=== PATIENT | male | born 1995 | race Caucasian/White ===

== ENCOUNTER 2018-02-12 09:01 | Emergency (ER) | payer OTHER ==
--- NOTE | 2018-02-12 09:45 | EDPHY ---
H & P Time Seen by Provider: 02/12/18 09:23 HPI/ROS: Last night this patient developed fevers and chills. He had mild nasal congestion associated with this. He took Tylenol at 3:00 a.m. With resolution of his fever and chills and was able to sleep thereafter. He awakened this morning without fever but had 1 loose stool described as light brown small watery. He had slight belly cramping prior to the diarrhea but none since. The patient visited his parents today for Easter and his mother was concerned about his symptoms citing primarily worry of potential influenza him brought him in for evaluation. He is accompanied by his father. At this time the patient feels well. ROS: Constitutional: No fatigue. HEENT: No sinus pain. No sore throat. No ear pain. Neuro: No generalized headache confusion or neck stiffness. Pulmonary: No cough Cardiovascular: No lightheadedness. No chest pain. GI: As per HPI. No bloody stools, green mucoid stools or tarry stools. Some nausea but no vomiting. Admits a decreased appetite since the onset of the symptoms. : No dysuria, frequency, urgency, testicular swelling or pain. No urethral discharge. 10 point ROS is otherwise negative. Past Medical/Surgical History: No influenza immunization this year. 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 Smoking Status: Never smoked Physical Exam: Vital signs are normal General Appearance: Alert, no distress. Eyes: Pupils equal and round no pallor or injection. ENT, Mouth: Mucous membranes moist. Respiratory: There are no retractions, lungs are clear to auscultation. Cardiovascular: Regular rate and rhythm. Gastrointestinal: Abdomen is soft and nontender, no masses, bowel sounds normal. Back: No CVA tenderness. : No testicular tenderness Neurological: GCS 15. Skin: Warm and dry, no rashes. Musculoskeletal: Neck is supple nontender. Extremities are symmetrical, full range of motion. Psychiatric: Mood and affect are normal DIFFERENTIAL DIAGNOSIS: After history and physical exam differential diagnosis was considered for influenza, viral URI, viral gastroenteritis Constitutional: Initial Vital Signs Temperature (C) 36.6 C 02/12/18 09:18 Heart Rate 97 02/12/18 09:18 Respiratory Rate 16 02/12/18 09:18 Blood Pressure 137/77 H 04/01/18 09:18 O2 Sat (%) 95 02/12/18 09:18 O2 Delivery Mode Room Air Allergies/Adverse Reactions: No Known Allergies Allergy (Verified 02/12/18 09:18) Home Medications: Medication Instructions Recorded Ondansetron Odt [Zofran Odt] 4 - 8 mg PO Q4PRN PRN #4 tab 02/12/18 MDM/Departure - [facility] ED Course/Re-evaluation: Discussion: Patient is currently asymptomatic with history of a fever last night loose stool this morning nasal congestion with a negative rapid influenza here. Viral gastroenteritis prevalent our community at this time I think he likely has this illness. I counseled he and father regarding this. He is comfortable proceeding home and declines any symptomatic medications at this time. Will provide a Zofran script if he develops nausea along with his loose stools. - Depart Disposition: Home, Routine, Self-Care Clinical Impression: Nausea Condition: Good Instructions: Gastroenteritis (ED) Additional Instructions: Diagnosis: 1. Diarrhea 2. Nausea It is likely that she have a viral gastroenteritis as this is prominent in the community at this time. Plan: Zofran under the tongue if needed for nausea or vomiting Light diet-bananas, rice, applesauce, soup, toast and similar until you feel improved Continue Tylenol and/or ibuprofen if needed for any subsequent fevers. Imodium if needed for diarrhea. Return if you are unable tolerate oral Intake despite Zofran due to vomiting or other concerns. Prescriptions: Ondansetron Odt [Zofran Odt] 4 - 8 mg PO Q4PRN PRN #4 tab PRN Reason: Vomiting Referrals: NONE *PRIMARY CARE P,. [Primary Care Provider] - As per Instructions
[2018-02-12 10:14] VITALS: BP 130/72; PULSE 92; RESP 14; TEMP 98.4; O2SAT 96
== END 2018-02-12 10:14 | disposition home or self-care (01) ==
LOC: CED 09:01
DX: R11.0 Nausea (principal)
CPT/HCPCS: 87400-PO